=== PATIENT | male | born 1950 | race African-American/Black ===

== ENCOUNTER 2018-09-11 07:25 | Inpatient (IN) ==
[2018-09-11 09:05] LABS: Basophils % 0.2 % (0.0-0.8); Hematocrit 36.9 VOL% (42.0-52.0); Hemoglobin 11.3 GM/DL (14.0-18.0); Immature Granulocytes Absolute 0.12 #; Lymphocytes # 1.5 10*3/uL (1.4-4.0); Lymphocytes % 11.8 % (21.2-54.2); Mean Corpuscular HGB Conc 30.6 GM/DL (32-36); Mean Corpuscular Hemoglobin 31 PG (27-34); Mean Corpuscular Volume 100.8 FL (87-102); Mean Platelet Volume 10.2 FL (9.6-12.0); Monocytes # 1.1 10*3/uL (0.11-0.8); Monocytes % 8.4 % (1.7-12.7); Neutrophils # 9.8 10*3/uL (1.4-7.4); Neutrophils % 78.6 % (38.7-73.9); Platelet Count 239 T/CUMM (130-400); Red Blood Count 3.66 MC/CUMM (3.8-5.5); Red Cell Distribution Width 13.3 % (9.3-17.3); White Blood Count 12.4 T/CUMM (4-12)
[2018-09-11 09:24] LABS: Albumin 3.2 G/DL (3.4-5.0); Bilirubin,Total 1.1 MG/DL (0.2-1.0); Calcium 9.2 MG/DL (8.5-10.1); Osmolality,Calculated 284.4 MOS/KG (273-304); Potassium 4.7 MMOL/L (3.5-5.1); Total Protein 7.1 G/DL (6.4-8.3)
[2018-09-11] MEDS ORDERED: MEROPENEM 1,000 MG in SODIUM CHLORIDE 0.9% 100 ML IV STA (10:14)
[2018-09-11 11:04] LABS: Apearance,Urine Slightly Hazy (Clear); Bacteria,Urine Occasional /HPF (Few); Bilirubin,Urine Negative (Negative); Blood, Urine Negative (Negative); Glucose,Urine (UA) Negative (Negative); Ketones,Urine 5 mg/dL (Negative); Mucus,Urine Occasional /LPF (Occasional); Nitrite,Urine Negative (Negative); Protein,Urine 100 MG/DL; RBC,Urine 6 /HPF (0-4); Renal Epithelial Cells,Urine Occasional /HPF (<1); Squamous Epithelial Cell,Urine Occasional /HPF (0-10); Urine Color Amber (Yellow); Urine Urobilinogen < 2.0 EU/DL (0.2-1.0); WBC,Urine 124 /HPF (0-6)
[2018-09-11] MEDS ORDERED: PROMETHAZINE 25 MG/1 ML VIAL IM PRN (11:14)
[2018-09-11] MEDS ORDERED: ONDANSETRON 4 MG/2 ML VIAL IV PRN (11:14)
[2018-09-11] MEDS ORDERED: SODIUM CHLORIDE 0.9% 1,000 ML IV STA (11:17)
[2018-09-11] MEDS: CEFEPIME 1,000 MG in SYRINGE 1 EACH IV SCH (13:55)
[2018-09-11] MEDS: ACETAMINOPHEN 325 MG TABLET PO PRN (15:47)
[2018-09-11] MEDS: SODIUM CHLORIDE 0.9% 1,000 ML IV SCH (16:49)
[2018-09-11] MEDS: ATENOLOL 25 MG TABLET PO SCH (17:39)
[2018-09-11] MEDS: diphenhydrAMINE CAP 25 MG CAPSULE PO PRN (19:18)
[2018-09-11] MEDS: FAMOTIDINE 20 MG TABLET PO SCH (21:43)
[2018-09-11] MEDS: cycloSPORINE (MODIFIED) 100 MG CAPSULE PO SCH (21:43)
[2018-09-11] MEDS: MYCOPHENOLATE MOFETIL 250 MG CAPSULE PO SCH (21:43)
[2018-09-12] MEDS: SODIUM CHLORIDE 0.9% 1,000 ML IV SCH ×4 (01:48→21:01)
[2018-09-12] MEDS: CEFEPIME 1,000 MG in SYRINGE 1 EACH IV SCH ×2 (01:48→14:30)
[2018-09-12] MEDS: ACETAMINOPHEN 325 MG TABLET PO PRN (04:03)
[2018-09-12 05:00] LABS: Hematocrit 31.1 VOL% (42.0-52.0); Hemoglobin 9.7 GM/DL (14.0-18.0); Red Blood Count 3.13 MC/CUMM (3.8-5.5); White Blood Count 23.7 T/CUMM (4-12)
[2018-09-12 05:01] LABS: Basophils # 0.1 10*3/uL (0.0-0.2); Basophils % 0.2 % (0.0-0.8); Immature Granulocytes % 1.3 %; Lymphocytes # 1.2 10*3/uL (1.4-4.0); Lymphocytes % 5.1 % (21.2-54.2); Mean Corpuscular HGB Conc 31.2 GM/DL (32-36); Mean Corpuscular Hemoglobin 31 PG (27-34); Mean Corpuscular Volume 99.4 FL (87-102); Mean Platelet Volume 10.4 FL (9.6-12.0); Monocytes # 1.5 10*3/uL (0.11-0.8); Monocytes % 6.4 % (1.7-12.7); Neutrophils # 20.7 10*3/uL (1.4-7.4); Platelet Count 192 T/CUMM (130-400); Red Cell Distribution Width 13.8 % (9.3-17.3)
[2018-09-12 05:36] LABS: Albumin 2.4 G/DL (3.4-5.0); Calcium 8.2 MG/DL (8.5-10.1); Osmolality,Calculated 284.4 MOS/KG (273-304); Potassium 4.7 MMOL/L (3.5-5.1); Risk Ratio 2.36; Thyroid Stimulating Hormone 1.17 uIU/ml (0.358-3.74); Total Protein 6.5 G/DL (6.4-8.3); VLDL CHOLESTEROL 17.6 MG/DL
[2018-09-12 06:57] LABS: Lymphocytes 6 % (20-55); Segmented Neutrophils 90 % (50-85)
[2018-09-12 07:01] LABS: Hypochromasia Slight; Platelet Estimate Normal
[2018-09-12 07:02] LABS: Ovalocytes 1+; Polychromasia Few; Total Cells Counted 100
[2018-09-12] MEDS ORDERED: LEVOFLOXACIN INJ 500 MG in PREMIX 1 EACH IV SCH (07:30)
[2018-09-12] MEDS ORDERED: SODIUM CHLORIDE 0.9% 500 ML IV ONE (07:32)
[2018-09-12] MEDS: cycloSPORINE (MODIFIED) 100 MG CAPSULE PO SCH ×2 (09:30→21:02)
[2018-09-12] MEDS: MYCOPHENOLATE MOFETIL 250 MG CAPSULE PO SCH ×2 (09:31→21:01)
[2018-09-12] MEDS: FAMOTIDINE 20 MG TABLET PO SCH ×2 (09:32→21:02)
[2018-09-12] MEDS: ASPIRIN EC 81 MG TABLET PO SCH (09:32)
[2018-09-12] MEDS: PANTOPRAZOLE 40 MG TABLET PO SCH (09:33)
[2018-09-12] MEDS: predniSONE 5 MG TABLET PO SCH (09:33)
[2018-09-12] MEDS: amLODIPine 5 MG TABLET PO SCH (09:34)
[2018-09-12] MEDS: ATENOLOL 25 MG TABLET PO SCH ×2 (09:35→17:05)
[2018-09-12] MEDS: diphenhydrAMINE CAP 25 MG CAPSULE PO PRN (21:02)
[2018-09-13] MEDS: CEFEPIME 1,000 MG in SYRINGE 1 EACH IV SCH ×2 (02:00→14:43)
[2018-09-13] MEDS: SODIUM CHLORIDE 0.9% 1,000 ML IV SCH ×3 (05:26→22:26)
[2018-09-13 06:17] LABS: Basophils % 0.1 % (0.0-0.8); Eosinophils # 0.1 10*3/uL (0.0-0.87); Eosinophils % 0.6 % (0.00-10.9); Hematocrit 30.4 VOL% (42.0-52.0); Hemoglobin 9.4 GM/DL (14.0-18.0); Immature Granulocytes % 1.1 %; Immature Granulocytes Absolute 0.24 #; Lymphocytes % 9.7 % (21.2-54.2); Mean Corpuscular HGB Conc 30.9 GM/DL (32-36); Mean Corpuscular Hemoglobin 31 PG (27-34); Mean Corpuscular Volume 101.7 FL (87-102); Mean Platelet Volume 10.6 FL (9.6-12.0); Monocytes # 1.4 10*3/uL (0.11-0.8); Monocytes % 6.6 % (1.7-12.7); Neutrophils # 17.1 10*3/uL (1.4-7.4); Neutrophils % 81.9 % (38.7-73.9); Platelet Count 153 T/CUMM (130-400); Red Blood Count 2.99 MC/CUMM (3.8-5.5); Red Cell Distribution Width 13.8 % (9.3-17.3); White Blood Count 20.9 T/CUMM (4-12)
[2018-09-13 06:49] LABS: Albumin 2.2 G/DL (3.4-5.0); Bilirubin,Total 0.8 MG/DL (0.2-1.0); Calcium 8.6 MG/DL (8.5-10.1); Osmolality,Calculated 285.3 MOS/KG (273-304); Potassium 4.1 MMOL/L (3.5-5.1); Total Protein 6.4 G/DL (6.4-8.3)
[2018-09-13 06:56] LABS: Band Neutrophils 14 % (0-10); Eosinophils 1 % (0-10); Lymphocytes 7 % (20-55); Platelet Estimate Normal; Segmented Neutrophils 72 % (50-85); Total Cells Counted 100
[2018-09-13 06:57] LABS: Anisocytosis 1+
[2018-09-13] MEDS: ATENOLOL 25 MG TABLET PO SCH ×2 (08:14→17:56)
[2018-09-13] MEDS: predniSONE 5 MG TABLET PO SCH (08:14)
[2018-09-13] MEDS: FAMOTIDINE 20 MG TABLET PO SCH ×2 (08:14→21:05)
[2018-09-13] MEDS: ASPIRIN EC 81 MG TABLET PO SCH (08:15)
[2018-09-13] MEDS: cycloSPORINE (MODIFIED) 100 MG CAPSULE PO SCH ×2 (08:15→21:08)
[2018-09-13] MEDS: amLODIPine 5 MG TABLET PO SCH (08:15)
[2018-09-13] MEDS: PANTOPRAZOLE 40 MG TABLET PO SCH (08:15)
[2018-09-13] MEDS: MYCOPHENOLATE MOFETIL 250 MG CAPSULE PO SCH ×2 (08:19→21:05)
[2018-09-13] MEDS ORDERED: LEVOFLOXACIN INJ 500 MG in PREMIX 1 EACH IV SCH (09:00)
[2018-09-13] MEDS ORDERED: MAGNESIUM SULF RIDER 2 GM in PREMIX 1 EACH IV ONE (10:14)
[2018-09-13 11:32] LABS: Folate 9.5 NG/ML (5.4-24.0)
[2018-09-14] MEDS: CEFEPIME 1,000 MG in SYRINGE 1 EACH IV SCH (01:59)
[2018-09-14] MEDS: ACETAMINOPHEN 325 MG TABLET PO PRN (01:59)
[2018-09-14 06:37] LABS: Osmolality,Calculated 280.3 MOS/KG (273-304)
[2018-09-14] MEDS: SODIUM CHLORIDE 0.9% 1,000 ML IV SCH ×2 (07:21→18:11)
[2018-09-14] MEDS: amLODIPine 5 MG TABLET PO SCH (09:27)
[2018-09-14] MEDS: PANTOPRAZOLE 40 MG TABLET PO SCH (09:28)
[2018-09-14] MEDS: FAMOTIDINE 20 MG TABLET PO SCH ×2 (09:28→20:59)
[2018-09-14] MEDS: ASPIRIN EC 81 MG TABLET PO SCH (09:29)
[2018-09-14] MEDS: predniSONE 5 MG TABLET PO SCH (09:29)
[2018-09-14] MEDS: cycloSPORINE (MODIFIED) 100 MG CAPSULE PO SCH ×2 (09:30→20:59)
[2018-09-14] MEDS: ATENOLOL 25 MG TABLET PO SCH ×2 (09:30→18:11)
[2018-09-14] MEDS: MYCOPHENOLATE MOFETIL 250 MG CAPSULE PO SCH ×2 (09:31→20:59)
[2018-09-14] MEDS: AZELASTINE NASAL 137 MCG/SPRAY 30 ML BOTTLE BOTH NARES SCH ×2 (11:31→20:59)
[2018-09-14] MEDS: cefTRIAXone 1,000 MG in SYRINGE 1 EACH IV SCH (11:54)
[2018-09-15] MEDS: SODIUM CHLORIDE 0.9% 1,000 ML IV SCH ×2 (02:01→10:55)
[2018-09-15 05:41] LABS: Basophils % 0.2 % (0.0-0.8); Eosinophils # 0.1 10*3/uL (0.0-0.87); Eosinophils % 1.1 % (0.00-10.9); Hematocrit 31.7 VOL% (42.0-52.0); Hemoglobin 10.1 GM/DL (14.0-18.0); Immature Granulocytes % 0.6 %; Immature Granulocytes Absolute 0.06 #; Lymphocytes # 2.5 10*3/uL (1.4-4.0); Lymphocytes % 26.2 % (21.2-54.2); Mean Corpuscular HGB Conc 31.9 GM/DL (32-36); Mean Corpuscular Hemoglobin 31 PG (27-34); Mean Corpuscular Volume 97.5 FL (87-102); Mean Platelet Volume 10.3 FL (9.6-12.0); Monocytes # 0.7 10*3/uL (0.11-0.8); Monocytes % 7.5 % (1.7-12.7); Neutrophils # 6.1 10*3/uL (1.4-7.4); Neutrophils % 64.4 % (38.7-73.9); Platelet Count 215 T/CUMM (130-400); Red Blood Count 3.25 MC/CUMM (3.8-5.5); Red Cell Distribution Width 13.3 % (9.3-17.3); White Blood Count 9.5 T/CUMM (4-12)
[2018-09-15 05:56] LABS: Calcium 7.9 MG/DL (8.5-10.1); Osmolality,Calculated 276.4 MOS/KG (273-304); Potassium 3.4 MMOL/L (3.5-5.1)
[2018-09-15 07:16] VITALS: BP 140/73
[2018-09-15] MEDS ORDERED: POTASSIUM CHLORIDE 20 MEQ TABLET PO ONE (08:03)
[2018-09-15] MEDS: ASPIRIN EC 81 MG TABLET PO SCH (09:55)
[2018-09-15] MEDS: predniSONE 5 MG TABLET PO SCH (09:55)
[2018-09-15] MEDS: ATENOLOL 25 MG TABLET PO SCH (09:55)
[2018-09-15] MEDS: PANTOPRAZOLE 40 MG TABLET PO SCH (09:55)
[2018-09-15] MEDS: MYCOPHENOLATE MOFETIL 250 MG CAPSULE PO SCH (09:55)
[2018-09-15] MEDS: amLODIPine 5 MG TABLET PO SCH (09:55)
[2018-09-15] MEDS: cefTRIAXone 1,000 MG in SYRINGE 1 EACH IV SCH (09:56)
[2018-09-15] MEDS: AZELASTINE NASAL 137 MCG/SPRAY 30 ML BOTTLE BOTH NARES SCH (10:08)
[2018-09-15] MEDS: FAMOTIDINE 20 MG TABLET PO SCH (10:09)
[2018-09-15] MEDS: cycloSPORINE (MODIFIED) 100 MG CAPSULE PO SCH (10:09)
== END 2018-09-15 11:20 | disposition home health service (06) | DRG 872 ==
LOC: N.ED 07:25 → INTOOBSV 11:10 → N.EDINP 11:10 → N.5E 12:59
PROVIDERS: ADMIT Internal Medicine; ATTEND Internal Medicine